=== PATIENT | female | born 1945 | race Caucasian/White ===

== ENCOUNTER 2018-02-16 17:50 | Emergency (ER) | payer MEDICARE ==
[~2018-02-16] VITALS: Ht 160 cm; Wt 61.0 kg
[2018-02-16 17:54] VITALS: BP 205/95; PULSE 75; RESP 18; TEMP 98.4; O2SAT 96
[2018-02-16] MEDS ORDERED: LEVO50TA4 PO (18:03)
[2018-02-16] MEDS ORDERED: VYTO10TA8 PO (18:03)
[2018-02-16] MEDS ORDERED: AMLO2.5T PO (18:03)
[2018-02-16] MEDS ORDERED: DONE10TA7 PO (18:03)
[2018-02-16] MEDS ORDERED: CITA20TA4 PO (18:03)
[2018-02-16] MEDS ORDERED: VALS1TAB70 PO (18:03)
[2018-02-16] MEDS ORDERED: TRAZ100T10 PO (18:03)
[2018-02-16 18:14] VITALS: BP 189/94; PULSE 74; RESP 16; O2SAT 95
[2018-02-16] MEDS ORDERED: PROCHLORPERAZINE INJ 10 MG/2 ML VIAL IV PUSH ONE (18:15)
[2018-02-16] MEDS ORDERED: diphenhydrAMINE HCL 50 MG/ML VIAL IV PUSH ONE (18:15)
--- NOTE | 2018-02-16 18:41 | PD ---
HPI . Headache Chief Complaint: Hypertension Time Seen by Provider: 18:07 Travel History International Travel<30 days: No Contact w/Intl Traveler<30days: No Traveled to known affect area: No History of Present Illness HPI This is a patient with dementia who is also hard of hearing who presents with her daughter with chief complaint of a frontal headache. Onset was a couple of days ago. The pain is described as a pounding sensation which is currently rated 10/10 and which has been partially relieved by Aleve. Associated symptoms include dizziness. The patient's daughter is also concerned about the patient's blood pressure. She has a history of hypertension. PFSH Past Medical History Alzheimer's Disease: Yes Anxiety: Yes Depression: Yes Cardiovascular Problems: Yes High Cholesterol: Yes Diminished Hearing: Yes (WEARS HEARING AIDS) Hypertension: Yes Immunizations Current: Yes ?: Not Past Surgical History Surgical History: No Previous Surgery Social History Alcohol Use: Yes (WINE IN EVENINGS) Tobacco Use: No (NEVER) Substance Use: No Allergies-Medications (Allergen,Severity, Reaction): Coded Allergies: No Known Allergies (Verified Allergy, Unknown, 02/16/18) Reported Meds & Prescriptions Reported Meds & Active Scripts Active Reported Amlodipine (Amlodipine Besylate) 2.5 Mg Tab 2.5 Mg PO DAILY Trazodone (Trazodone HCl) 100 Mg Tablet 100 Mg PO HS Vytorin (Ezetimibe-Simvastatin) 10-20 Mg Tab 1 Tab PO HS Donepezil 10 Mg Tab 10 Mg PO HS Valsartan 320 Mg Tab 320 Mg PO DAILY Levothyroxine (Levothyroxine Sodium) 50 Mcg Tab 50 Mcg PO DAILY Citalopram (Citalopram Hydrobromide) 20 Mg Tab 20 Mg PO DAILY Review of Systems Except as stated in HPI: all other systems reviewed are Neg General / Constitutional: No: Fever, Chills Eyes: No: Blurred Vision HENT: Positive: Headaches, Lightheadedness Physical Exam Narrative GENERAL: Awake and alert. She has a little bit of difficulty following instructions. SKIN: warm/dry. HEAD: Normocephalic. Positive scalp tenderness. EYES: Pupils equal and round. Extraocular movements are intact. ENT: Mucous membranes pink and moist. NECK: Supple. Full range of motion without pain.. CARDIOVASCULAR: Regular rate and rhythm. RESPIRATORY: No accessory muscle use. Clear to auscultation. Breath sounds equal bilaterally. MUSCULOSKELETAL: No obvious deformities. Normal muscle tone. NEUROLOGICAL: Awake and alert. No obvious cranial nerve deficits. Motor grossly within normal limits. Normal speech. She is unable to do finger-nose- finger exam. She is unable to understand and follow the instructions. PSYCHIATRIC: Appropriate mood and affect; insight and judgment normal. Data Data Last Documented VS Vital Signs Date Time Temp Pulse Resp B/P (MAP) Pulse Ox O2 Delivery O2 Flow Rate FiO2 02/16/18 18:14 74 16 189/94 (125) 95 Room Air 02/16/18 17:54 98.4 Orders Orders ^ Saline Lock (02/16/18 18:08) Diphenhydramine Inj (Benadryl Inj) (02/16/18 18:15) Prochlorperazine Inj (Compazine Inj) (02/16/18 18:15) MDM Medical Decision Making Medical Screen Exam Complete: Yes Emergency Medical Condition: Yes Differential Diagnosis Differential diagnosis of headache includes but is not limited to migraine, muscle contraction headache, brain tumor, brain bleed Narrative Course This patient presents with a frontal headache. She has a muscle contraction type headache based upon her physical exam. She is being treated with IV Compazine and Benadryl. I suspect that her blood pressure will improve as her pain improves. Her headache is better and her blood pressure is better. Diagnosis Primary Impression: Headache Qualified Codes: G44.209 - Tension-type headache, unspecified, not intractable Patient Instructions: Acute Headache (DC), General Instructions Disposition: 01 DISCHARGE HOME Condition: Stable Estephania Martínez MD Feb 16, 2018 18:41
[2018-02-16 19:31] VITALS: BP 167/80
== END 2018-02-16 19:33 | disposition home or self-care (01) ==
LOC: PHED 17:50
DX: G44.209 Tension-type headache, unspecified, not intractable (principal); I10 Essential (primary) hypertension; R42 Dizziness and giddiness; G30.9 Alzheimer's disease, unspecified; F02.80 Dementia in other diseases classified elsewhere, unspecified severity, without behavioral disturbance, psychotic disturbance, mood disturbance, and anxiety; F41.9 Anxiety disorder, unspecified; F32.9 Major depressive disorder, single episode, unspecified; E78.00 Pure hypercholesterolemia, unspecified
CPT/HCPCS: 96374; 96375; 99284; J0780; J1200